=== PATIENT | female | born 1980 | race Caucasian/White ===

== ENCOUNTER 2020-06-29 10:41 | Emergency (ER) | payer BC ==
[~2020-06-29] VITALS: Ht 165.1 cm; Wt 72.7 kg
[2020-06-29 10:47] VITALS: BP 131/83; TEMP 97.8
[2020-06-29] MEDS ORDERED: FLEXERIL 1010 MG/TAB PO (11:33)
[2020-06-29] MEDS ORDERED: MEDROL 4MG DOSPA4 MG PO (11:33)
[2020-06-29 11:40] VITALS: PULSE 87
== END 2020-06-29 11:40 | disposition home or self-care (01) ==
LOC: COL.ER 10:41
DX: M54.5 Low back pain (principal); F17.290 Nicotine dependence, other tobacco product, uncomplicated
CPT/HCPCS: J1885

== ENCOUNTER 2021-02-23 10:38 | Emergency (ER) | payer BC ==
[~2021-02-23] VITALS: Ht 165.1 cm; Wt 77.3 kg
[~2021-02-23 10:38] MED LIST: FLEXERIL 1010 MG/TAB PO; MEDROL 4MG DOSPA4 MG PO
[2021-02-23 11:02] VITALS: BP 128/82; TEMP 98.3
[2021-02-23 11:43] LABS: COLLECTION METHOD CLEAN CATCH
[2021-02-23 11:47] LABS: BASO % 0.6 % (0.0-2.0); EOS % 0.6 % (0.0-4.0); GRAN # 5.4 K/mm3 (1.4-6.5); GRAN % 75.4 % (42.2-75.2); HEMATOCRIT 38.9 % (37.0-47.0); HEMOGLOBIN 13.1 g/dl (12.5-16.0); LYMPH # 1.4 K/mm3 (1.2-3.4); LYMPH % 19.6 % (20.0-51.0); MEAN CELL VOLUME 90 fl (80.0-100.0); MEAN CORPUSCULAR HEMOGLOBIN 30 pg (27-31); MEAN CORPUSCULAR HGB CONC 34 g/dl (33.0-37.0); MEAN PLATELET VOLUME 9.3 fl (7.4-10.4); MONO # 0.3 K/mm3 (0.1-0.6); MONO % 3.5 % (1.7-9.3); PLATELET COUNT 258 K/mm3 (130-400); RED BLOOD COUNT 4.33 M/mm3 (4.10-5.30); REDCELL DISTRIBUTION WIDTH-CV 12.2 % (11.5-14.5)
[2021-02-23 11:53] LABS: PH 7 (5-8); SQUAMOUS EPITHELIAL 0-2 /hpf (0-10); URINE APPEARANCE Clear (CLEAR/HAZY); URINE BACTERIA Many /hpf (NONE SEEN); URINE BILIRUBIN Negative (NEGATIVE); URINE BLOOD Negative (NEGATIVE); URINE COLOR Colorless (YELLOW); URINE GLUCOSE Negative (NEGATIVE); URINE KETONE Negative (NEGATIVE); URINE LEUKOCYTE ESTERASE Negative (NEGATIVE); URINE NITRATE Negative (NEGATIVE); URINE PROTEIN(semi-quant) Negative (NEGATIVE); URINE RBC 0-2 /hpf (0-2); URINE UROBILINOGEN Negative (NEGATIVE)
[2021-02-23 12:03] LABS: ALBUMIN 4.2 gm/dL (3.5-5.0); BILIRUBIN,TOTAL 0.5 mg/dL (0.2-1.2); CALCIUM 9.9 mg/dL (8.4-10.2); CREATININE, serum 0.83 mg/dL (0.57-1.11); TOTAL PROTEIN 7.1 gm/dL (6.2-8.1)
[2021-02-23 12:13] LABS: POTASSIUM 4.2 mmol/L (3.5-4.5)
[2021-02-23 12:22] LABS: TSH w REFLEX 0.645 uIU/mL (0.350-4.940)
[2021-02-23] MEDS ORDERED: FLEXERIL 1010 MG/TAB PO (12:26)
[2021-02-23] MEDS ORDERED: ZOFRAN ODT4 MG PO (12:44)
[2021-02-23 12:45] VITALS: PULSE 71
== END 2021-02-23 12:45 | disposition home or self-care (01) ==
LOC: COL.ER 10:38
PROVIDERS: Physician Assistant
DX: M62.830 Muscle spasm of back (principal); R11.2 Nausea with vomiting, unspecified; F17.290 Nicotine dependence, other tobacco product, uncomplicated; Z20.822 Contact with and (suspected) exposure to COVID-19
CPT/HCPCS: J7030

== ENCOUNTER → 2021-07-31 | Outpatient (CLI) | payer BC ==
[~2021-07-31] MED LIST changes: +ZOFRAN ODT4 MG PO
== END ==
LOC: MC.RAD 15:20
DX: Z12.31 Encounter for screening mammogram for malignant neoplasm of breast (principal); N63.10 Unspecified lump in the right breast, unspecified quadrant

== ENCOUNTER → 2021-08-07 | Outpatient (CLI) | payer BC | LOC: MC.RAD 10:18 | DX: N64.89 Other specified disorders of breast (principal) ==